=== PATIENT | male | born 1985 | race Caucasian/White ===

== ENCOUNTER 2022-01-12 23:36 | Emergency (ER) | payer MEDICAID ==
[~2022-01-12] VITALS: Ht 180.3 cm; Wt 54.5 kg
[2022-01-12 23:40] VITALS: BP 108/89
--- NOTE | 2022-01-13 00:09 | NUR ---
Patient said he wants to leave. Patient discharged AMA by provider.
== END 2022-01-13 00:10 | disposition home or self-care (01) ==
LOC: EDSEX 23:37 → ER 23:37
DX: T40.601A Poisoning by unspecified narcotics, accidental (unintentional), initial encounter (principal); R41.82 Altered mental status, unspecified; Z88.8 Allergy status to other drugs, medicaments and biological substances; Y92.89 Other specified places as the place of occurrence of the external cause
CPT/HCPCS: 99283